=== PATIENT | female | born 1985 | race African-American/Black ===

== ENCOUNTER 2020-07-30 09:28 | Emergency (ER) | payer OTHER, SELFPAY ==
[2020-07-30 09:31] VITALS: BP 153/91; PULSE 85; RESP 16; TEMP 37.1; O2SAT 100
--- NOTE | 2020-07-30 09:39 | ED.BACK ---
HPI - Back Pain/Injury General Chief Complaint: Back Pain/Injury Stated Complaint: Back pain Time Seen by Provider: 07/30/20 09:39 Source: patient and RN notes reviewed History of Present Illness HPI Narrative: Patient is a 34-year-old female who presents the urgent care with complaints of mid to upper back pain. Patient states that it started 3 days ago while she was at work and she denies of any known injury to cause the pain. 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 States that she did take off work today and is needing a work note for the next couple days. Patient has been using ibuprofen and Tylenol [id number] for the pain without much improvement. Also reports of using a heating pad. Denies of any other complaints. No acute distress noted. Patient aware of the plan of care. Some parts of this dictation were generated by voice recognition software and may contain typographical and/or grammatical inaccuracies. Related Data Allergies Allergy/AdvReac Type Severity Reaction Status Date / Time No Known Allergies Allergy Verified 07/30/20 09:42 Review of Systems Review of Systems: Narrative: CONSTITUTIONAL: Denies fever, chills, or sweats. EYES: Denies visual changes, redness, or discharge. ENT: Denies rhinorrhea, congestion, sore throat, or otalgia. CARDIOVASCULAR: Denies chest pain, palpitations, or edema. RESPIRATORY: Denies cough or dyspnea. GASTROINTESTINAL: Denies abdominal pain, nausea, vomiting, or diarrhea. GENITOURINARY: Denies dysuria or hematuria. SKIN: Denies rash or itching. MUSCULOSKELETAL: Reports of mid to upper back pain radiating to the neck and upper arms NEUROLOGIC: Denies headache, numbness, or weakness. All other systems reviewed are negative, except as documented in HPI. PMFSH Comments At the time of my signature, I reviewed and agree with the nursing past medical, surgical, social, and family history. There is no relevant family history pertinent to the patient complaint. Exam Narrative: Exam Narrative: GENERAL: This is a well-nourished, well-developed patient, in no apparent distress. HEAD: normocephalic, atraumatic. EYES: PERRL. Sclera clear/white. Vision is grossly intact. EARS: External ears normal NOSE: External nose normal with no obvious nasal discharge, nares without redness, no rhinorrhea. THROAT: Mucous membranes moist NECK: Range of motion slightly limited due to pain however ability to chin tuck, head left, and right and left flexion with mild to moderate pain noted SKIN: warm, intact with no suspicious lesions or rash, good texture and turgor. NEURO: awake, alert, and oriented to person, place and time. There were no obvious focal neurologic abnormalities. EXTREMITIES: No clubbing, cyanosis, or edema. Range of motion to both lower and upper extremities within normal limits. BACK: Mild to moderate diffuse thoracic tenderness. Negative for lumbar tenderness. Positive left SLE. Course Vital Signs Vital signs: Vital Signs Temperature 98.7 F 07/30/20 09:31 Pulse Rate 85 07/30/20 09:31 Respiratory Rate 16 07/30/20 09:31 Blood Pressure 153/91 H 07/30/20 09:31 Pulse Oximetry 100 07/30/20 09:31 Temperature 98.7 F 07/30/20 09:31 Pulse Rate 85 07/30/20 09:31 Respiratory Rate 16 07/30/20 09:31 Blood Pressure 153/91 H 07/30/20 09:31 Pulse Oximetry 100 07/30/20 09:31 Reviewed-patient is informed that they may have pre-hypertension or hypertension based on a blood pressure reading in the department. I recommend the patient call the primary care provider listed on their discharge instructions or a physician of their choice this week to arrange follow-up for further evaluation of possible pre-hypertension or hypertension. MDM - Back Pain/Injury MDM Narrative Medical decision making narrative: Advised the patient to complete steroid regimen as prescribed. Use Flexeril as nee
== END 2020-07-30 09:55 | disposition home or self-care (01) ==
PROVIDERS: Emergency Provider Nurse Practitioner Family; PCP Family Medicine
DX: M54.12 Radiculopathy, cervical region (principal); M54.6 Pain in thoracic spine
CPT/HCPCS: 99213; G0463